=== PATIENT | male | born 1960 | race Caucasian/White ===

== ENCOUNTER 2023-03-05 08:00 | Day surgery (SDC) | payer OTHER ==
[~2023-03-05 08:00] MED LIST: Lactated Ringers 1,000 ML IV SCH; Sodium Chloride 0.9% 10 ML Syringe FLUSH PRN; Sodium Chloride 0.9% 2.5 ML Syringe FLUSH PRN; Sodium Chloride 0.9% 20 ML SDV IV PRN
[2023-03-05] MEDS ORDERED: Propofol 200 MG/20 ML SDV ONE (09:45)
[2023-03-05] MEDS ORDERED: Lidocaine 2% 5 ML SDV ONE (09:45)
[2023-03-05 12:41] VITALS: BP 115/70; PULSE 67
== END 2023-03-05 10:57 | disposition home or self-care (01) ==
LOC: MW.SDS 08:00
PROVIDERS: ATTEND Surgery
DX: Z12.11 Encounter for screening for malignant neoplasm of colon (principal); D12.8 Benign neoplasm of rectum; K57.30 Diverticulosis of large intestine without perforation or abscess without bleeding; K63.5 Polyp of colon; K62.89 Other specified diseases of anus and rectum; I10 Essential (primary) hypertension; E78.00 Pure hypercholesterolemia, unspecified; F32.A Depression, unspecified; G47.30 Sleep apnea, unspecified; E11.9 Type 2 diabetes mellitus without complications; E66.9 Obesity, unspecified; Z88.8 Allergy status to other drugs, medicaments and biological substances; Z88.6 Allergy status to analgesic agent; Z79.899 Other long term (current) drug therapy; Z79.82 Long term (current) use of aspirin; Z98.890 Other specified postprocedural states; Z87.891 Personal history of nicotine dependence
CPT/HCPCS: 45380; 82947; J2704; J7120; 88305; J3490

== ENCOUNTER 2025-02-22 07:44 | Day surgery (SDC) | payer OTHER ==
[~2025-02-22 07:44] MED LIST changes: -Lactated Ringers 1,000 ML IV SCH
[2025-02-22] MEDS: Lactated Ringers 1,000 ML IV SCH (08:29)
[2025-02-22] MEDS ORDERED: propofoL 500 MG/50 ML 50 ML ONE (08:58)
[2025-02-22] MEDS ORDERED: Lidocaine 2% 5 ML SDV ONE (08:59)
[2025-02-22] MEDS ORDERED: Glycopyrrolate 0.2 MG/ML SDV ONE (09:55)
[2025-02-22] MEDS ORDERED: Propofol 200 MG/20 ML SDV ONE (10:03)
[2025-02-22 11:14] VITALS: BP 124/65; PULSE 48
== END 2025-02-22 11:08 | disposition home or self-care (01) ==
LOC: MW.SDS 07:44
PROVIDERS: ATTEND Surgery
DX: D12.5 Benign neoplasm of sigmoid colon (principal); D12.0 Benign neoplasm of cecum; D12.3 Benign neoplasm of transverse colon; K31.89 Other diseases of stomach and duodenum; K29.50 Unspecified chronic gastritis without bleeding; D50.9 Iron deficiency anemia, unspecified; K57.30 Diverticulosis of large intestine without perforation or abscess without bleeding; I12.9 Hypertensive chronic kidney disease with stage 1 through stage 4 chronic kidney disease, or unspecified chronic kidney disease; E11.22 Type 2 diabetes mellitus with diabetic chronic kidney disease; N18.2 Chronic kidney disease, stage 2 (mild); E78.00 Pure hypercholesterolemia, unspecified; E66.9 Obesity, unspecified; Z88.8 Allergy status to other drugs, medicaments and biological substances; Z68.34 Body mass index [BMI] 34.0-34.9, adult; Z87.891 Personal history of nicotine dependence; Z86.0100 Personal history of colon polyps, unspecified; Z79.899 Other long term (current) drug therapy
CPT/HCPCS: 43239; 45380; 82947; J1596; J2003; J2704; J7120; 00813; 88305; 88342